=== PATIENT | female | born 1940 | race Caucasian/White ===

== ENCOUNTER 2018-03-17 00:36 | Inpatient (IN) ==
[2018-03-17] MEDS ORDERED: Ipratropium/Albuterol Neb 3 ML IH ONE (01:04)
[2018-03-17] MEDS ORDERED: methylPREDNISolone 125 MG/2 ML VIAL IVP ONE (01:04)
[2018-03-17 01:29] LABS: ABG Base Excess 3 mEq/L (-2 to 3); ABG HCO3 28 mEq/L (21-27); ABG Oxygen Saturation 95 % (95-98); ABG PCO2 39 mmHg (35-45); ABG PH 7.45 pH Units (7.32-7.45); ABG PO2 72 mmHg (85-104); ABG TCO2 29 mEq/L (20-26)
[2018-03-17 01:49] LABS: Basophils # 0.1 K/mcL (0.0-0.2); Basophils % 0.5 %; Eosinophils # 0.5 K/mcL (0.0-0.6); Eosinophils % 3.6 %; Hematocrit 42.2 % (35.3-44.9); Hemoglobin 13.6 g/dL (11.5-15.4); Immature Granulocytes % 0.4 % (0-4); Lymphocytes # 3.3 K/mcL (0.6-4.6); Lymphocytes % 23.5 %; Mean Corpuscular HGB Conc 32.2 g/dL (31.6-35.5); Mean Corpuscular Hemoglobin 28.1 pg (28.0-33.3); Mean Corpuscular Volume 87.2 fL (83.0-100.0); Mean Platelet Volume 9.8 fL (9.4-12.4); Monocytes % 7.2 %; Neutrophils # 9.1 K/mcL (1.6-8.9); Platelet Count 318 K/mcL (140-400); Red Blood Count 4.84 M/mcL (3.82-4.97); Red Cell Distribution Width 14.8 % (11.5-14.5); Segmented Neutrophils % 64.8 %
[2018-03-17 02:08] LABS: BUN/Creatinine Ratio 18 (6-26); Blood Urea Nitrogen 16 mg/dL (8-23); Calcium 9.5 mg/dL (8.6-10.3); Carbon Dioxide 29 mEq/L (23-29); Chloride 104 mEq/L (98-107); Glucose 163 mg/dL (70-105); Osmolality,Calculated 299 (280-300); Potassium 3.7 mEq/L (3.5-5.1); Sodium 142 mEq/L (136-145); Troponin I < 0.03 ng/mL (< 0.04); eGFR For Non-African Americans > 60 (> 60)
--- NOTE | 2018-03-17 02:21 | Emergency Department Note ---
Disposition Clinical Impression: Bronchitis, acute, with bronchospasm, Diffuse interstitial pulmonary fibrosis Disposition: Admitted As Inpatient Condition: Fair Referrals: Kareem Rodriguez DO [Primary Care Provider] - Time of Disposition: 02:26 SOB HPI - General Chief Complaint: ED Shortness of Breath/Dyspnea Stated Complaint: difficulty in breathing Time Seen by Provider: 03/17/18 00:55 Source: patient, EMS Mode of arrival: EMS Limitations: no limitations Nursing Notes Reviewed: Yes Vital Signs Reviewed: Yes - History of Present Illness Pt Subjective Complaint: shortness of breath, cough Onset (ago): day(s) (Has had some progressively worsening shortness of breath over the past couple of months but in the past and full of days has suddenly gotten worse.) Context: recent illness (Sinus congestion and a productive cough) Severity: severe Consistency/Duration: constant Improves with: oxygen, rest Worsens with: exertion Known history of: other (Chronic interstitial lung disease) Associated symptoms: Reports: cough, sputum production. Denies: chest pain, fever Treatment prior to arrival: oxygen Cough present: Yes Cough Frequency: Intermittent Sputum Amount: Small - Related Data Home oxygen amount: 2 liters Home Medications Medication Instructions Recorded Confirmed Albuterol Sulfate [Albuterol 2 puff IH Q4HR PRN 09/19/16 09/19/16 Inhaler] Atorvastatin [Lipitor] 10 mg PO HS 09/19/16 09/19/16 FLUoxetine HCl [Prozac] 20 mg PO HS 09/19/16 09/19/16 Fluticasone Propionate [Flovent 2 puff PO BID 09/19/16 09/19/16 Hfa] Ipratropium/Albuterol Neb [Duoneb] 3 ml IH Q6HR PRN 09/19/16 09/19/16 Lisinopril-HCTZ 10-12.5 [Prinzide 1 tab PO HS 09/19/16 09/19/16 10-12.5] [place]-3/Dha/Epa/Fish Oil [Fish Oil 1 each PO HS 09/19/16 09/19/16 1,000 mg Softgel] Previous Rx's Medication Instructions Recorded OxyCODONE/APAP 5/325 [Percocet 1 each PO Q4HR PRN #30 tab 09/27/16 5/325 MG] Allergies Allergy/AdvReac Type Severity Reaction Status Date / Time No Known Allergies Allergy Verified 03/17/18 00:48 All systems ED: reviewed and negative except as stated. Constitutional: Denies: fever, chills ENT ED: Reports: congestion. Denies: ear pain, throat pain Cardiovascular: Denies: chest pain, palpitations Respiratory: Reports: cough, dyspnea, wheezes Gastrointestinal: Denies: abdominal pain, nausea, vomiting, diarrhea Musculoskeletal: Denies: back pain, neck pain Integumentary: Denies: rash Past Medical History - Past Medical History Attestation: Yes The following information was validated with the patient. Source: patient, old records reviewed, obtained from family, nursing notes reviewed Medical history: Reports: hyperlipidemia, hypertension, other Surgical history: Reports: other Psychiatric history: Reports: anxiety, depression - Social History Smoking Status: Former smoker Smokeless Tobacco Status: No Alcohol use: Reports: none Drug use: Reports: none Physical Exam - General Limitations: no limitations General appearance: alert, in distress (Patient is tachypneic. Nontoxic. Smiling and interactive) - Head Head exam: atraumatic, normocephalic, normal inspection - Eye Eye exam: Present: normal appearance, PERRL, EOMI. Absent: scleral icterus, conjunctival injection - ENT ENT exam: normal exam, normal oropharynx, mucous membranes moist, TM's normal bilaterally, normal external ear exam - Neck Neck exam: Present: normal inspection, full ROM, trachea midline. Absent: meningismus - Chest Chest inspection: Present: normal inspection, symmetric chest wall rise. Absent: tenderness - Respiratory Respiratory exam: Present: respiratory distress (Tachypneic), wheezes (Course in bilateral). Absent: accessory muscle use - Cardiovascular Cardiovascular exam: Present: normal rhythm, tachycardia, normal heart sounds - Abdominal Exam Abdominal exam: Present: soft, Non-Tender, normal bowel sounds - Extremities Exam Extremities exam: Present: normal inspection, full ROM. Absent: pedal edema - Neurological Exam Neurological exam: Present: alert, oriented X3 - Psychiatric Psychiatric exam: Present: normal affect, normal mood - Skin Skin exam: Present: warm, dry, rash Course Course Narrative: Patient presents with complaint of shortness of breath. Progressively worsening firm a period of months but worse in the past and full of days after developing some upper respiratory infection symptoms. She has a cough still bit productive. She got diffuse wheezing bilaterally on auscultation. There are no clinical indications of DVT. It does not seem like pulmonary embolism. Seems like a reactive issue in the lungs as result of respiratory infection. I am going to start breathing treatments and give her steroids. We will get an x-ray and check labs. Disposition will be based on diagnostic results and reevaluation. - Reevaluation(s) Reevaluation #1: Patient does feel better after breathing treatments but still tachypneic and still tachycardic. O2 sats are 96% on 3 L right now. I feel she is to be admitted to the hospital for respiratory treatment. We will start antibiotics. I will talk to the hospitalist. Time: 02:24 - Consultations Consultation #1: Dr. Nieves, hospitalist - I discussed the case with the hospitalist. He accepted the patient for admission to the hospital. Time: 02:24 Vital Signs Temperature 97.6 F 03/17/18 00:37 Pulse Rate 123 03/17/18 00:37 Respiratory Rate 26 03/17/18 00:37 Blood Pressure 137/94 03/17/18 00:37 O2 Sat by Pulse Oximetry 93 03/17/18 00:37 Temperature 97.6 F 03/17/18 00:37 Pulse Rate 124 03/17/18 01:30 Respiratory Rate 30 03/17/18 01:30 Blood Pressure 115/80 03/17/18 01:30 O2 Sat by Pulse Oximetry 97 03/17/18 01:30 Oxygen Delivery Oxygen Delivery Nasal Cannula Shortness of Breath/Dyspnea - Medical Records Medical records reviewed: Yes I reviewed the patient's medical records. - Lab Data Lab results reviewed: Yes I reviewed the patient's lab results. Result diagrams: 03/17/18 01:30 03/17/18 01:30 Lab Results 03/17/18 03/17/18 03/17/18 Range/Units 01:26 01:30 01:30 WBC 14.1 H (4.3-11.1) K/mcL RBC 4.84 (3.82-4.97) M/mcL Hgb 13.6 (11.5-15.4) g/dL Hct 42.2 (35.3-44.9) % MCV 87.2 (83.0-100.0) fL MCH 28.1 (28.0-33.3) pg MCHC 32.2 (31.6-35.5) g/dL RDW 14.8 H (11.5-14.5) % Plt Count 318 (140-400) K/mcL MPV 9.8 (9.4-12.4) fL Immature Gran % 0.4 (0-4) % Seg Neutrophils % 64.8 % Lymphocytes % 23.5 % Monocytes % 7.2 % Eosinophils % 3.6 % Basophils % 0.5 % Neutrophils # 9.1 H (1.6-8.9) K/mcL Lymphocytes # 3.3 (0.6-4.6) K/mcL Monocytes # 1.0 (0.0-1.3) K/mcL Eosinophils # 0.5 (0.0-0.6) K/mcL Basophils # 0.1 (0.0-0.2) K/mcL D-Dimer 477 (0-500) ng/mLFEU Sample Site L Brach ABG pH 7.45 (7.32-7.45) pH Units ABG pCO2 39 (35-45) mmHg ABG pO2 72 L (85-104) mmHg ABG HCO3 28 H (21-27) mEq/L ABG Total CO2 29 H (20-26) mEq/L ABG O2 Saturation 95 (95-98) % ABG Base Excess 3 (-2 to 3) mEq/L Travis Test Negative O2 Delivery Device Cannula Inspired O2 4.0 (1-15=lpm ft33-266=%) Sodium (136-145) mEq/L Potassium (3.5-5.1) mEq/L Chloride (98-107) mEq/L Carbon Dioxide (23-29) mEq/L BUN (8-23) mg/dL Creatinine (0.60-1.20) mg/dL Est GFR ( Amer) (> 60) Est GFR (Non-Af Amer) (> 60) BUN/Creatinine Ratio (6-26) Glucose (70-105) mg/dL Calculated Osmolality (280-300) Lactic Acid (0.5-2.2) mmol/L Calcium (8.6-10.3) mg/dL Troponin I (< 0.04) ng/mL B-Natriuretic Peptide (Less than 100) pg/mL 03/17/18 03/17/18 03/17/18 Range/Units 01:30 01:30 01:30 WBC (4.3-11.1) K/mcL RBC (3.82-4.97) M/mcL Hgb (11.5-15.4) g/dL Hct (35.3-44.9) % MCV (83.0-100.0) fL MCH (28.0-33.3) pg MCHC (31.6-35.5) g/dL RDW (11.5-14.5) % Plt Count (140-400) K/mcL MPV (9.4-12.4) fL Immature Gran % (0-4) % Seg Neutrophils % % Lymphocytes % % Monocytes % % Eosinophils % % Basophils % % Neutrophils # (1.6-8.9) K/mcL Lymphocytes # (0.6-4.6) K/mcL Monocytes # (0.0-1.3) K/mcL Eosinophils # (0.0-0.6) K/mcL Basophils # (0.0-0.2) K/mcL D-Dimer (0-500) ng/mLFEU Sample Site ABG pH (7.32-7.45) pH Units ABG pCO2 (35-45) mmHg ABG pO2 (85-104) mmHg ABG HCO3 (21-27) mEq/L ABG Total CO2 (20-26) mEq/L ABG O2 Saturation (95-98) % ABG Base Excess (-2 to 3) mEq/L Travis Test O2 Delivery Device Inspired O2 (1-15=lpm oh80-447=%) Sodium 142 (136-145) mEq/L Potassium 3.7 (3.5-5.1) mEq/L Chloride 104 (98-107) mEq/L Carbon Dioxide 29 (23-29) mEq/L BUN 16 (8-23) mg/dL Creatinine 0.89 (0.60-1.20) mg/dL Est GFR ( Amer) > 60 (> 60) Est GFR (Non-Af Amer) > 60 (> 60) BUN/Creatinine Ratio 18 (6-26) Glucose 163 H (70-105) mg/dL Calculated Osmolality 299 (280-300) Lactic Acid 1.7 (0.5-2.2) mmol/L Calcium 9.5 (8.6-10.3) mg/dL Troponin I < 0.03 (< 0.04) ng/mL B-Natriuretic Peptide 25 (Less than 100) pg/mL - Radiology Data Radiology results reviewed: Yes I reviewed the patient's radiology results. - EKG Data EKG attestation: Yes I reviewed and interpreted this EKG. EKG results narrative: Twelve-lead EKG performed at 1: 14 AM. Ordered, reviewed and interpreted by ED physician. Sinus tachycardia at a rate of 127. Normal axis. Good hour progression across precordium. No acute ischemic changes. Intervals within normal limits.
[2018-03-17] MEDS ORDERED: Levofloxacin 750 MG/150 ML 750 MG/150 ML BAG IVPB ONE ×2 (02:28→03:30)
[2018-03-17] MEDS ORDERED: Naloxone 0.4 MG/ML INJ IVP PRN (03:30)
[2018-03-17] MEDS: Ipratropium/Albuterol Neb 3 ML IH SCH ×3 (03:38→11:39)
[2018-03-17] MEDS: 0.9 % Sodium Chloride 1,000 ML IVC SCH ×2 (04:33→15:26)
[2018-03-17] MEDS: MethylPREDNISolone 40 MG/ML VIAL IVP SCH ×2 (07:53→15:30)
[2018-03-17] MEDS: MOMETASONE FUROATE 100 mcg Inhaler IH SCH ×2 (10:47→20:37)
--- NOTE | 2018-03-17 15:33 | Internal Med History&Physical ---
Date of Encounter: 03/17/18 Time of Encounter: 14:45 Assessment and Plan (1) Interstitial lung disease Current visit: No Status: Chronic Suspect superimposed exacerbation of COPD with asthmatic bronchitis. Symbicort will be ordered. Albuterol nebs as needed. She has been started empirically on IV antibiotics with Solu-Medrol through emergency room. (2) Hypertension Current visit: Yes Status: Chronic Will start low-dose Toprol to lessen tachycardia. Hold lisinopril/HCTZ for now. Qualifiers: Hypertension type: essential hypertension Qualified Code(s): I10 - Essential (primary) hypertension (3) Leukocytosis Current visit: Yes Status: Acute Recheck labs in a.m. Qualifiers: Leukocytosis type: unspecified Qualified Code(s): D72.829 - Elevated white blood cell count, unspecified (4) Weight loss Current visit: Yes Status: Acute Weight has decreased approximately 50 pounds since September 2016. Check TSH and order CT of chest abdomen and pelvis (5) Weakness Current visit: Yes Status: Acute She is now unable to take more than 2-3 steps at home. PT and OT evaluations will be done. Internal Medicine - H&P: HPI Chief complaint: Dyspnea Admitted From: Emergency Dept Plans for Post Hospital Care: Home History of present illness: Ms. Garcia is a 77 year old female who came to emergency room complaining of increased dyspnea with cough over the last month. She seemed to be progressively weaker so came to emergency room. She was evaluated and was admitted to [facility] floor for ongoing care needs. She was diagnosed with idiopathic pulmonary fibrosis approximately 2016. Her respiratory history is significant for having smoked from age [age] never exceeding 1 pack per day. She denies a diagnosis of COPD. She uses oxygen 11/09. Past Med Surg Social Fam HX - Past Medical History Medical history: hyperlipidemia, hypertension, other Additional medical history: decreased right lung function Psychiatric history: anxiety, depression - Past Surgical History Surgical History: other Additional surgical history: lung biospy - Social History Smoking Status: Former smoker Smokeless Tobacco Status: No Alcohol use: none Drug use: none - Family History Mother Name: Leatha Heredia Hx Family Cardiac Disorders: No Hx Family Respiratory Disorders: No Hx Family Cancer: Yes (Colon) Hx Family GI Disorders: No Hx Family Genitourinary Disorders: No Hx Family Endocrine Disorder: No Hx Family Musculoskeletal Disorders: No Hx Family Neuromuscular Disorders: No Hx Family Neurologic Disorders: No Hx Family HEENT Disorders: No Hx Family Autoimmune Disorders: No Hx Family Reproductive Disorders: No Hx Family Psychosocial Disorders: No Hx Family Medical Disorders: No Internal Medicine - H&P: Meds Albuterol Sulfate [Albuterol Inhaler] 2 puff IH Q4HR PRN 09/19/16 [History] Atorvastatin [Lipitor] 10 mg PO HS 09/19/16 [History] Ipratropium/Albuterol Neb [Duoneb] 3 ml IH Q6HR PRN 09/19/16 [History] Lisinopril-HCTZ 10-12.5 [Prinzide 10-12.5] 1 tab PO HS 09/19/16 [History] Allergy/AdvReac Type Severity Reaction Status Date / Time No Known Allergies Allergy Verified 03/17/18 00:48 All Systems PM: A 10-system review of systems was performed and is negative for pertinent findings except as documented above in the HPI. Review of systems: Gen.: Her weight has decreased from 95.4 kg September 2016 to 72.1 kg on admission now. This was unintentional. Cardiovascular: She has history of hypertension but denies MT heart failure angina DVT or pulmonary embolus. Respiratory: As per history of present illness GI: She denies disorders of her liver gallbladder or exocrine pancreas : She has had occasional UTIs. She denies other kidney or bladder disorders. Neurologic: She denies large distribution strokes or seizures. Endocrine: She has hyperlipidemia but denies diabetes or thyroid disease Hematology/oncology: She denies blood disorders cancers or anemia Psychiatric: She has anxiety and depression but denies other mental health issues. [place] skeletal: She has DJD but denies gout or other bone joint or muscle disorders. - Constitutional Vitals: Temp Pulse Resp BP Pulse Ox 98.2 F 133 22 128/73 93 03/17/18 13:45 03/17/18 13:45 03/17/18 13:45 03/17/18 11:04 03/17/18 11:39 Exam: Gen.: She is a well-developed well-nourished female lying in bed who appears dyspneic and slightly anxious at rest HEENT: Head is atraumatic and normal cephalic. Eyes: EOMI. There is no scleral icterus. Mouth: Mucosa is moist. Neck: Supple and nontender. There is no thyromegaly or adenopathy noted. Heart: Regular without murmurs gallops or ectopics. Rate is approximately 136/m Lungs: She has fine inspiratory crackles that do not clear with coughing. She has mild expiratory wheezing diffusely. Abdomen: Soft and nontender. No masses or guarding are noted. Extremities: There is no cyanosis edema or clubbing noted. Dorsalis pedis and posterior tibial pulses are trace to 1+ palpable bilaterally. Neurologic: Mental status: She is talkative and a good historian. Cranial nerves: Smile is symmetric. Forehead wrinkles bilaterally. Tongue protrudes midline. EOMI. Motor: There is no pronator drift. Cerebellar: Finger to nose is intact bilaterally. Skin: Warm and dry Internal Med - H&P Results - Labs CBC & Chem 7: 03/17/18 01:30 03/17/18 01:30 Labs: Short CBC 03/17/18 Range/Units 01:30 WBC 14.1 H (4.3-11.1) K/mcL Hgb 13.6 (11.5-15.4) g/dL Hct 42.2 (35.3-44.9) % Plt Count 318 (140-400) K/mcL Neutrophils # 9.1 H (1.6-8.9) K/mcL BMP 03/17/18 01:30 Sodium 142 Potassium 3.7 Chloride 104 Carbon Dioxide 29 BUN 16 Creatinine 0.89 Glucose 163 H Calcium 9.5 Cardiac Enzymes 03/17/18 03/17/18 03/17/18 Range/Units 01:30 07:30 13:30 Troponin I < 0.03 < 0.03 < 0.03 (< 0.04) ng/mL - ABG Interpretation ABG results: 03/17/18 01:26 ABG pH 7.45 ABG pCO2 39 ABG pO2 72 L ABG HCO3 28 H ABG Total CO2 29 H ABG O2 Saturation 95 ABG Base Excess 3 - Impressions ITS Impressions Chest X-Ray 03/17/18 01:03 IMPRESSION: Stable appearance of the chest with findings consistent with interstitial fibrosis. D/ / Yannick Baig MD / Yannick Baig MD Interpreting Provider: Yannick Baig MD
[2018-03-17] MEDS ORDERED: Mag Hydrox/Al Hydrox/Simeth 30 ML UDC PO PRN (15:42)
[2018-03-17] MEDS: Metoprolol XL (24 HR) Succ 25 MG TAB.ER.24H PO SCH (16:29)
[2018-03-17] MEDS: ALPRAZolam 0.5 MG TABLET PO PRN (16:29)
[2018-03-17] MEDS: Budesonide/Formoterol 160/4.5 1 PUFF INH IH SCH ×2 (17:20→21:30)
[2018-03-17] MEDS: FLUoxetine 20 MG CAPSULE PO SCH (19:59)
[2018-03-17] MEDS: Lactobacillus 1 EACH CAP.SPRINK PO SCH (19:59)
[2018-03-18] MEDS: MethylPREDNISolone 40 MG/ML VIAL IVP SCH (00:43)
[2018-03-18] MEDS: Levofloxacin 500 MG/100 ML 500 MG/100 ML BAG IVPB SCH (04:14)
[2018-03-18] MEDS: *HR* Enoxaparin 40 MG/0.4 ML SYRINGE SQ SCH (05:40)
[2018-03-18 07:57] LABS: Magnesium 2.3 mg/dL (1.6-2.6)
[2018-03-18] MEDS ORDERED: methylPREDNISolone 125 MG/2 ML VIAL IVP SCH (08:00)
[2018-03-18 08:12] LABS: Thyroid Stimulating Hormone 0.266 mcIU/mL (0.340-5.600)
[2018-03-18] MEDS: Lactobacillus 1 EACH CAP.SPRINK PO SCH ×2 (09:17→20:15)
[2018-03-18] MEDS: Metoprolol XL (24 HR) Succ 25 MG TAB.ER.24H PO SCH (09:17)
[2018-03-18] MEDS: MOMETASONE FUROATE 100 mcg Inhaler IH SCH (10:05)
[2018-03-18] MEDS: Budesonide/Formoterol 160/4.5 1 PUFF INH IH SCH ×2 (10:08→22:40)
[2018-03-18] MEDS ORDERED: Ondansetron ODT 4 MG TAB.RAPDIS SL PRN (10:35)
--- NOTE | 2018-03-18 10:46 | Internal Med Progress Note ---
Date of Encounter: 03/18/18 Time of Encounter: 10:25 - Assessment and plan (1) Interstitial lung disease Current Visit: No Status: Chronic Assessment and plan: March 18. Continue present management. (2) Hypertension Current Visit: Yes Status: Chronic Assessment and plan: March 18. Remain off lisinopril/HCTZ and continue low-dose Toprol. Qualifiers: Hypertension type: essential hypertension Qualified Code(s): I10 - Essential (primary) hypertension (3) Leukocytosis Current Visit: Yes Status: Acute Assessment and plan: March 18. Recheck labs in a.m. Qualifiers: Leukocytosis type: unspecified Qualified Code(s): D72.829 - Elevated white blood cell count, unspecified (4) Weight loss Current Visit: Yes Status: Acute Assessment and plan: . TSH returned suppressed at 0.266. Check T3 and T4 in a.m. with repeat TSH. (5) Weakness Current Visit: Yes Status: Acute Assessment and plan: March 18. PT and OT evaluations have been ordered. - Subjective Interval history: March 18. She has had vomiting this morning. She does not feel her dyspnea has significantly changed. - Constitutional Vitals: Temp Pulse Resp BP Pulse Ox 98.3 F 68 16 100/59 96 03/18/18 09:05 03/18/18 09:05 03/18/18 09:05 03/18/18 09:05 03/18/18 09:05 Exam: She is resting comfortably in bed. Her affect is cheerful. Heart is regular with rate approximately 80/m. Lungs show no wheezing. Inspiratory crackles are unchanged from yesterday. I reviewed her medications, lab results, and CT report. Internal Medicine: Result - Labs CBC & Chem 7: 03/17/18 01:30 03/17/18 01:30 Labs: Cardiac Enzymes 03/17/18 Range/Units 13:30 Troponin I < 0.03 (< 0.04) ng/mL - ABG Interpretation ABG results: ABG ABG pH 7.45 pH Units (7.32-7.45) 03/17/18 01:26 ABG pCO2 39 mmHg (35-45) 03/17/18 01:26 ABG pO2 72 mmHg (85-104) L 03/17/18 01:26 ABG O2 Saturation 95 % (95-98) 03/17/18 01:26 PT/INR, D-dimer D-Dimer 477 ng/mLFEU (0-500) 03/17/18 01:30 - Impressions Impressions Abdomen/Pelvis CT 03/17/18 15:46 IMPRESSION: Fibrotic changes throughout the lungs, similar in appearance to previous exam. 3.2 x 2.8 cm left ovarian cystic lesion. Recommend further evaluation with ultrasound. D/ / Terri Juares MD / Terri Juares MD Interpreting Provider: Terri Juares MD Chest CT 03/17/18 15:46 IMPRESSION: Fibrotic changes throughout the lungs, similar in appearance to previous exam. 3.2 x 2.8 cm left ovarian cystic lesion. Recommend further evaluation with ultrasound. D/ / Terri Juares MD / Terri Juares MD Interpreting Provider: Terri Juares MD Consult Discharge Plan - Plan Referrals: Kareem Rodriguez DO [Primary Care Provider] - 1 week
[2018-03-18] MEDS: Albuterol 2.5 MG/3 ML NEBULIZER IH PRN (15:55)
[2018-03-18] MEDS: ALPRAZolam 0.5 MG TABLET PO PRN (16:04)
[2018-03-18] MEDS: FLUoxetine 20 MG CAPSULE PO SCH (20:15)
[2018-03-19] MEDS: Levofloxacin 500 MG/100 ML 500 MG/100 ML BAG IVPB SCH (04:09)
[2018-03-19] MEDS: *HR* Enoxaparin 40 MG/0.4 ML SYRINGE SQ SCH (05:45)
[2018-03-19 06:31] LABS: Basophils % 0.1 %; Eosinophils % 0.1 %; Hematocrit 37.3 % (35.3-44.9); Hemoglobin 11.8 g/dL (11.5-15.4); Immature Granulocytes % 0.5 % (0-4); Lymphocytes # 1.8 K/mcL (0.6-4.6); Lymphocytes % 12.3 %; Mean Corpuscular HGB Conc 31.6 g/dL (31.6-35.5); Mean Corpuscular Hemoglobin 28.3 pg (28.0-33.3); Mean Corpuscular Volume 89.4 fL (83.0-100.0); Mean Platelet Volume 9.7 fL (9.4-12.4); Monocytes % 6.5 %; Neutrophils # 11.9 K/mcL (1.6-8.9); Platelet Count 299 K/mcL (140-400); Red Blood Count 4.17 M/mcL (3.82-4.97); Red Cell Distribution Width 15.5 % (11.5-14.5); Segmented Neutrophils % 80.5 %
[2018-03-19 06:59] LABS: Alanine Aminotransferase 8 Units/L (7-52); Albumin 3.2 g/dL (3.5-5.7); Albumin/Globulin Ratio 1.1 (1.1-2.2); Alkaline Phosphatase 62 Units/L (34-104); Aspartate Amino Transferase 11 Units/L (13-39); BUN/Creatinine Ratio 36 (6-26); Bilirubin,Total 0.2 mg/dL (0.3-1.0); Blood Urea Nitrogen 25 mg/dL (8-23); Calcium 9.1 mg/dL (8.6-10.3); Carbon Dioxide 30 mEq/L (23-29); Chloride 108 mEq/L (98-107); Globulin 2.9 g/dL (2.4-3.5); Glucose 95 mg/dL (70-105); Osmolality,Calculated 298 (280-300); Potassium 3.9 mEq/L (3.5-5.1); Sodium 142 mEq/L (136-145); Total Protein 6.1 g/dL (6.4-8.9); eGFR For Non-African Americans > 60 (> 60)
[2018-03-19 07:07] LABS: Thyroid Stimulating Hormone 0.989 mcIU/mL (0.340-5.600)
[2018-03-19] MEDS: Lactobacillus 1 EACH CAP.SPRINK PO SCH ×2 (08:23→20:08)
[2018-03-19] MEDS: Metoprolol XL (24 HR) Succ 25 MG TAB.ER.24H PO SCH (08:23)
[2018-03-19] MEDS: Budesonide/Formoterol 160/4.5 1 PUFF INH IH SCH ×2 (09:29→21:03)
--- NOTE | 2018-03-19 12:05 | Electrocardiograph Report ---
[place] [id number] Test Date: 2018-03-17 Pat Name: Ewelina Garcia Department: EDP-16 Room: [facility] Gender: F Internet Sales Associate: : 1940 Requested By: Mejia Tellez Order Number: [id number] Reading MD: Neal Padilla Measurements Intervals [place] Rate: 127 P: 0 UT: 142 QRS: 85 QRSD: 97 T: 26 QT: 314 QTc: 457 Interpretive Statements Sinus tachycardia Probable left atrial enlargement Low voltage, precordial leads Nonspecific ST T changes Electronically Signed On 03-19-2018 12:04:28 EST by Neal Padilla
--- NOTE | 2018-03-19 12:48 | Discharge Summary ---
Orders not resulted at time of discharge: Pending orders 03/17/18 01:30 Culture,Blood [BC] Stat Date of Encounter: 03/19/18 Time of Encounter: 12:38 - Discharge Diagnosis (1) Interstitial lung disease Priority: Primary Status: Chronic (2) Hypertension Priority: Secondary Status: Chronic Qualifiers: Hypertension type: essential hypertension Qualified Code(s): I10 - Essential (primary) hypertension (3) Leukocytosis Priority: Secondary Status: Acute Qualifiers: Leukocytosis type: unspecified Qualified Code(s): D72.829 - Elevated white blood cell count, unspecified (4) Weight loss Priority: Secondary Status: Acute (5) Weakness Priority: Secondary Status: Chronic Hospital course: Ms. Garcia is a 77 year old female who came to emergency room complaining of increased dyspnea with cough over the last month. She seemed to be progressively weaker so came to emergency room. She was evaluated and was admitted to [facility] floor for ongoing care needs. Initial orders were written by the emergency room physician. I saw her on March 17 and performed a history and physical. Chest CT was done to further evaluate dyspnea. There were fibrotic changes seen throughout the lung similar in appearance to previous exams. There was a 3 x 2 x 2.8 cm left ovarian cystic lesion. Recommendation for further evaluation ultrasound was made. Her PCP Dr. Rodriguez can order this. She was started empirically on Levaquin. WBC remained slightly elevated at 14.8 K on day of discharge with 80.5% segs present. She will continue with antibiotics and probiotic for 3 additional days at discharge. The etiology of her weight loss was not determined. TSH on March 10 returned slightly suppressed at 0.266 but repeat exam the following day was normal at 0.989. She was given Xanax on a prn basis since she appeared anxious about her dyspnea. She will be given 12 pills on prescription at discharge. Her PCP can order additional medication as needed. PT and OT evaluations were done to further evaluate and treat her weakness. I encouraged her to remain as active as possible in the home. She will be discharged and follow with her PCP Dr. Rodriguez within 1 week. - Time Spent with Patient Total time spent providing and/or coordinating discharge services: - Discharge Medications Prescriptions: Cefuroxime PO [Ceftin] 500 mg PO Q12HR #6 tablet ALPRAZolam [Xanax 0.5 MG Tablet] 0.5 mg PO Q6H PRN 3 Days #12 tablet PRN Reason: Anxiety Azithromycin [Zithromax] 250 mg PO DAILY #3 tablet Lactobacillus [Culturelle] 1 each PO BID #6 cap.sprink predniSONE [PredniSONE] 10 mg PO BIDWM #6 tablet Home Medications: Albuterol Sulfate [Albuterol Inhaler] 2 puff IH Q4HR PRN 09/19/16 [History] Atorvastatin [Lipitor] 10 mg PO HS 09/19/16 [History] Ipratropium/Albuterol Neb [Duoneb] 3 ml IH Q6HR PRN 09/19/16 [History] ALPRAZolam [Xanax 0.5 MG Tablet] 0.5 mg PO Q6H PRN 3 Days #12 tablet 03/19/18 [Rx] Azithromycin [Zithromax] 250 mg PO DAILY #3 tablet 03/19/18 [Rx] Cefuroxime PO [Ceftin] 500 mg PO Q12HR #6 tablet 03/19/18 [Rx] Lactobacillus [Culturelle] 1 each PO BID #6 cap.sprink 03/19/18 [Rx] predniSONE [PredniSONE] 10 mg PO BIDWM #6 tablet 03/19/18 [Rx] Allergies/Adverse Reactions: Allergy/AdvReac Type Severity Reaction Status Date / Time No Known Allergies Allergy Verified 03/17/18 00:48 Date of admission: 03/17/18 16:24 Primary care physician: Kareem Rodriguez DO Consults: 03/17/18 04:20 Consult to Civil Cad Designer [CONS] Routine Reason for SW Consult: Home therapy (oxygen currently) 03/17/18 15:49 Consult to Occupational Therapy [CONS] Routine Comment: Evaluate, develop and implement POC Reason for Consult: Weakness Does patient have active BEDREST order?: No Is patient medically & hemodynamically stable?: Yes Patient assessed for mobility or mobilized this visit?: Yes Consult to Physical Therapy [CONS] Routine Comment: Evaluate, develop and implement POC Reason for Consult: Weakness Does patient have active BEDREST order?: No Is patient medically & hemodynamically stable?: Yes Patient assessed for mobility or mobilized this visit?: Yes - Constitutional Vitals: Temp Pulse Resp BP Pulse Ox 97.6 F 66 16 103/58 99 03/19/18 10:56 03/19/18 10:56 03/19/18 10:56 03/19/18 10:56 03/19/18 10:56 - Patient Status Disposition: Home, Self-Care Condition: Fair - Discharge Instructions Follow Up With: Kareem Rodriguez DO [Primary Care Provider] - 1 week - Diet and Activity Activity: resume usual activities as tolerated, wear oxygen at all times Diet: advance to your usual diet
[2018-03-19] MEDS: FLUoxetine 20 MG CAPSULE PO SCH (20:08)
[2018-03-19] MEDS: Albuterol 2.5 MG/3 ML NEBULIZER IH PRN (21:02)
[2018-03-20] MEDS: Levofloxacin 500 MG/100 ML 500 MG/100 ML BAG IVPB SCH (04:15)
[2018-03-20] MEDS: *HR* Enoxaparin 40 MG/0.4 ML SYRINGE SQ SCH (06:06)
[2018-03-20] MEDS: Metoprolol XL (24 HR) Succ 25 MG TAB.ER.24H PO SCH (08:10)
[2018-03-20] MEDS: Lactobacillus 1 EACH CAP.SPRINK PO SCH ×2 (08:10→20:47)
[2018-03-20] MEDS: Budesonide/Formoterol 160/4.5 1 PUFF INH IH SCH ×2 (09:28→21:26)
--- NOTE | 2018-03-20 18:13 | Internal Med Progress Note ---
Date of Encounter: 03/20/18 Time of Encounter: 18:05 - Assessment and plan (1) Interstitial lung disease Current Visit: No Status: Chronic Assessment and plan: March 18. Continue present management. (2) Hypertension Current Visit: Yes Status: Chronic Assessment and plan: March 18. Remain off lisinopril/HCTZ and continue low-dose Toprol. Qualifiers: Hypertension type: essential hypertension Qualified Code(s): I10 - Essential (primary) hypertension (3) Leukocytosis Current Visit: Yes Status: Acute Assessment and plan: March 18. Recheck labs in a.m. March 20. Recheck labs in a.m. Qualifiers: Leukocytosis type: unspecified Qualified Code(s): D72.829 - Elevated white blood cell count, unspecified (4) Weight loss Current Visit: Yes Status: Acute Assessment and plan: March 18. TSH returned suppressed at 0.266. Check T3 and T4 in a.m. with repeat TSH. March 20. Repeat TSH normal at 0.989. T3 slightly low and T4 unremarkable. (5) Weakness Current Visit: Yes Status: Chronic Assessment and plan: March 18. PT and OT evaluations have been ordered. - Subjective Interval history: March 18. She has had vomiting this morning. She does not feel her dyspnea has significantly changed. March 20. Her discharge order was canceled yesterday after an appeal was filed to insurance for consideration for allowing swing bed stay at [facility]. No determination decision has been received back from insurance yet. She has no new complaints. - Constitutional Vitals: Temp Pulse Resp BP Pulse Ox 97.4 F L 81 16 124/68 99 03/20/18 10:00 03/20/18 10:00 03/20/18 10:00 03/20/18 10:00 03/20/18 10:00 Exam: She is resting comfortably in bed and appears in no acute distress. Her affect is bright and cheerful. I reviewed her medications and lab results. Internal Medicine: Result - Labs CBC & Chem 7: 03/19/18 06:08 03/19/18 06:08 - ABG Interpretation ABG results: ABG ABG pH 7.45 pH Units (7.32-7.45) 03/17/18 01:26 ABG pCO2 39 mmHg (35-45) 03/17/18 01:26 ABG pO2 72 mmHg (85-104) L 03/17/18 01:26 ABG O2 Saturation 95 % (95-98) 03/17/18 01:26 PT/INR, D-dimer D-Dimer 477 ng/mLFEU (0-500) 03/17/18 01:30 Consult Discharge Plan - Plan Referrals: Kareem Rodriguez DO [Primary Care Provider] - 1 week Prescriptions: Cefuroxime PO [Ceftin] 500 mg PO Q12HR #6 tablet ALPRAZolam [Xanax 0.5 MG Tablet] 0.5 mg PO Q6H PRN 3 Days #12 tablet PRN Reason: Anxiety Azithromycin [Zithromax] 250 mg PO DAILY #3 tablet Lactobacillus [Culturelle] 1 each PO BID #6 cap.sprink predniSONE [PredniSONE] 10 mg PO BIDWM #6 tablet
[2018-03-20] MEDS: FLUoxetine 20 MG CAPSULE PO SCH (20:47)
[2018-03-21] MEDS: *HR* Enoxaparin 40 MG/0.4 ML SYRINGE SQ SCH (06:04)
[2018-03-21 06:43] LABS: Basophils % 0.1 %; Eosinophils # 0.6 K/mcL (0.0-0.6); Hematocrit 39.2 % (35.3-44.9); Hemoglobin 12.3 g/dL (11.5-15.4); Immature Granulocytes % 0.4 % (0-4); Lymphocytes # 1.8 K/mcL (0.6-4.6); Lymphocytes % 21.4 %; Mean Corpuscular HGB Conc 31.4 g/dL (31.6-35.5); Mean Corpuscular Volume 89.3 fL (83.0-100.0); Mean Platelet Volume 10.3 fL (9.4-12.4); Monocytes # 0.8 K/mcL (0.0-1.3); Neutrophils # 5.3 K/mcL (1.6-8.9); Platelet Count 301 K/mcL (140-400); Red Blood Count 4.39 M/mcL (3.82-4.97); Red Cell Distribution Width 15.6 % (11.5-14.5); Segmented Neutrophils % 62.1 %
[2018-03-21 07:08] LABS: BUN/Creatinine Ratio 18 (6-26); Blood Urea Nitrogen 11 mg/dL (8-23); Calcium 9.1 mg/dL (8.6-10.3); Carbon Dioxide 33 mEq/L (23-29); Chloride 104 mEq/L (98-107); Glucose 95 mg/dL (70-105); Osmolality,Calculated 291 (280-300); Potassium 3.9 mEq/L (3.5-5.1); Sodium 141 mEq/L (136-145); eGFR For Non-African Americans > 60 (> 60)
[2018-03-21] MEDS: Lactobacillus 1 EACH CAP.SPRINK PO SCH (08:17)
[2018-03-21] MEDS: Metoprolol XL (24 HR) Succ 25 MG TAB.ER.24H PO SCH (08:17)
[2018-03-21] MEDS ORDERED: levoFLOXacin 500 MG TABLET PO SCH (09:00)
[2018-03-21] MEDS: Budesonide/Formoterol 160/4.5 1 PUFF INH IH SCH (10:21)
[2018-03-21 10:47] VITALS: BP 90/67
--- NOTE | 2018-03-21 17:23 | Discharge Summary ---
Orders not resulted at time of discharge: Pending orders 03/17/18 01:30 Culture,Blood [] Stat Date of Encounter: 03/21/18 Time of Encounter: 17:10 - Discharge Diagnosis (1) Interstitial lung disease Priority: Primary Status: Chronic (2) Hypertension Priority: Secondary Status: Chronic Qualifiers: Hypertension type: essential hypertension Qualified Code(s): I10 - Essential (primary) hypertension (3) Leukocytosis Priority: Secondary Status: Acute Qualifiers: Leukocytosis type: unspecified Qualified Code(s): D72.829 - Elevated white blood cell count, unspecified (4) Weight loss Priority: Secondary Status: Acute (5) Weakness Priority: Secondary Status: Chronic Hospital course: Ms. Garcia is a 77 year old female who came to emergency room complaining of increased dyspnea with cough over the last month. She seemed to be progressively weaker so came to emergency room. She was evaluated and was admitted to [facility] floor for ongoing care needs. Initial orders were written by the emergency room physician. I saw her on March 17 and performed a history and physical. Chest CT was done to further evaluate dyspnea. There were fibrotic changes seen throughout the lung similar in appearance to previous exams. There was a 3 x 2 x 2.8 cm left ovarian cystic lesion. Recommendation for further evaluation ultrasound was made. Her PCP Dr. Rodriguez can order this. She was started empirically on Levaquin. WBC remained slightly elevated at 14.8 K on day of discharge with 80.5% segs present. She will continue with antibiotics and probiotic for 3 additional days at discharge. The etiology of her weight loss was not determined. TSH on March 10 returned slightly suppressed at 0.266 but repeat exam the following day was normal at 0.989. She was given Xanax on a prn basis since she appeared anxious about her dyspnea. She will be given 12 pills on prescription at discharge. Her PCP can order additional medication as needed. PT and OT evaluations were done to further evaluate and treat her weakness. I encouraged her to remain as active as possible in the home. She will be discharged and follow with her PCP Dr. Rodriguez within 1 week. ADDENDUM: Following dictation of the discharge summary and writing of discharge order, and appeal was made to insurance for reconsideration of swing bed. Approval was received on March 21 for her to be discharged to swing bed and continue therapy. WBC normalized to 8.5 and there was resolution of left shift on March 21. Antibiotics will not be continued in swing bed. - Time Spent with Patient Total time spent providing and/or coordinating discharge services: - Discharge Medications Prescriptions: ALPRAZolam [Xanax 0.5 MG Tablet] 0.5 mg PO Q6H PRN 3 Days #12 tablet PRN Reason: Anxiety Home Medications: Albuterol Sulfate [Albuterol Inhaler] 2 puff IH Q4HR PRN 09/19/16 [History] Atorvastatin [Lipitor] 10 mg PO HS 09/19/16 [History] Ipratropium/Albuterol Neb [Duoneb] 3 ml IH Q6HR PRN 09/19/16 [History] ALPRAZolam [Xanax 0.5 MG Tablet] 0.5 mg PO Q6H PRN 3 Days #12 tablet 03/19/18 [Rx] Allergies/Adverse Reactions: Allergy/AdvReac Type Severity Reaction Status Date / Time No Known Allergies Allergy Verified 03/17/18 00:48 Date of admission: 03/17/18 16:24 Primary care physician: Kareem Rodriguez DO Consults: 03/17/18 04:20 Consult to Wharf Worker [CONS] Routine Reason for SW Consult: Home therapy (oxygen currently) 03/17/18 15:49 Consult to Occupational Therapy [CONS] Routine Comment: Evaluate, develop and implement POC Reason for Consult: Weakness Does patient have active BEDREST order?: No Is patient medically & hemodynamically stable?: Yes Patient assessed for mobility or mobilized this visit?: Yes Consult to Physical Therapy [CONS] Routine Comment: Evaluate, develop and implement POC Reason for Consult: Weakness Does patient have active BEDREST order?: No Is patient medically & hemodynamically stable?: Yes Patient assessed for mobility or mobilized this visit?: Yes - Constitutional Vitals: Temp Pulse Resp BP Pulse Ox 97.6 F 82 17 90/67 97 03/21/18 10:44 03/21/18 10:44 03/21/18 10:44 03/21/18 10:44 03/21/18 10:44 - Patient Status Disposition: Transfer Hospital Swing Bed Condition: Fair - Discharge Instructions - Diet and Activity Activity: as per physical therapy Diet: regular diet
== END 2018-03-21 17:45 | disposition other institution (70) | DRG 198 ==
LOC: INPPIK 00:36 → EMEROOPIK 00:36 → INPPIK 03:30
PROVIDERS: ADMIT Internal Medicine; ATTEND Internal Medicine

== ENCOUNTER 2018-03-21 17:29 | Inpatient (IN) ==
[2018-03-21] MEDS ORDERED: Ipratropium/Albuterol Neb 3 ML IH PRN (17:42)
[2018-03-21] MEDS ORDERED: ALPRAZolam 0.5 MG TABLET PO PRN (17:42)
[2018-03-21] MEDS: Cefuroxime PO 250 MG TABLET PO SCH (18:33)
[2018-03-21] MEDS: Lactobacillus 1 EACH CAP.SPRINK PO SCH (20:35)
[2018-03-22] MEDS: Cefuroxime PO 250 MG TABLET PO SCH (06:41)
[2018-03-22] MEDS: Lactobacillus 1 EACH CAP.SPRINK PO SCH (07:52)
[2018-03-22] MEDS ORDERED: predniSONE 10 MG TABLET PO SCH (08:00)
[2018-03-22] MEDS ORDERED: Azithromycin 250 MG TABLET PO SCH (09:00)
--- NOTE | 2018-03-22 09:30 | Internal Med Progress Note ---
Date of Encounter: 03/22/18 Time of Encounter: 09:20 - Assessment and plan (1) Interstitial lung disease Current Visit: No Status: Chronic Assessment and plan: March 22. Continue supplemental oxygen. (2) Hypertension Current Visit: No Status: Chronic Assessment and plan: March 22. Blood pressure borderline low. She is off all antihypertensive medication at this time. Qualifiers: Hypertension type: essential hypertension Qualified Code(s): I10 - Essential (primary) hypertension (3) Weight loss Current Visit: No Status: Chronic Assessment and plan: March 22. Etiology not identified. Continue to monitor. (4) Weakness Current Visit: No Status: Chronic Assessment and plan: March 22. Continue PT and OT intervention. (5) Hyperlipidemia Current Visit: Yes Status: Chronic Assessment and plan: March 22. Lipid profile 01/08/2018 showed cholesterol 110, triglycerides 82, LDL 56, HDL 38, and total/HDL ratio of 2.9. Lipitor will be discontinued. Qualifiers: Hyperlipidemia type: unspecified Qualified Code(s): E78.5 - Hyperlipidemia, unspecified - Subjective Interval history: March 22. She was hospitalized in acute-care at [facility] March 17- after presenting with dyspnea. Leukocytosis was present. Chest and abdomen CT were done to further evaluate reported weight loss and dyspnea. No worrisome pathology was seen. There was a 3 x 2 x 2.8 cm left ovarian cystic lesion. Recommendation for further evaluation ultrasound was made. Her PCP Dr. Rodriguez can order this. Fibrotic changes throughout the lungs similar appearance to previous studies were noted. She was treated empirically with antibiotics and leukocytosis with left shift resolved by March 21. PT and OT evaluations and ongoing interventions were done. She received approval for discharge to swing bed March 21. She has no new complaints today. - Constitutional Vitals: Temp Pulse Resp BP Pulse Ox 98.4 F 81 16 88/52 97 03/22/18 06:47 03/22/18 06:47 03/21/18 18:40 03/22/18 06:47 03/22/18 06:47 Exam: She is resting comfortably in bed and appears minimally dyspneic. Oxygen saturation was 91% wearing oxygen by nasal cannula. I reviewed her medications and lab results. Consult Discharge Plan - Plan Referrals: Kareem Rodriguez DO [Primary Care Provider] - 1 week
[2018-03-22] MEDS: Budesonide/Formoterol 160/4.5 1 PUFF INH IH SCH ×2 (12:01→22:29)
[2018-03-23] MEDS: Budesonide/Formoterol 160/4.5 1 PUFF INH IH SCH ×2 (09:29→22:48)
[2018-03-23] MEDS ORDERED: Ondansetron ODT 4 MG TAB.RAPDIS SL PRN (18:51)
[2018-03-23] MEDS ORDERED: *HR* Promethazine 25 MG/ML VIAL IM PRN (18:59)
[2018-03-24] MEDS: Budesonide/Formoterol 160/4.5 1 PUFF INH IH SCH ×2 (09:31→21:15)
--- NOTE | 2018-03-24 11:33 | Internal Med Progress Note ---
Date of Encounter: 03/24/18 Time of Encounter: 11:25 - Assessment and plan (1) Interstitial lung disease Current Visit: No Status: Chronic Assessment and plan: March 22. Continue supplemental oxygen. (2) Hypertension Current Visit: No Status: Chronic Assessment and plan: March 22. Blood pressure borderline low. She is off all antihypertensive medication at this time. March 24. Blood pressure acceptable. Remain off antihypertensive medications. Qualifiers: Hypertension type: essential hypertension Qualified Code(s): I10 - Essential (primary) hypertension (3) Weight loss Current Visit: No Status: Chronic Assessment and plan: March 22. Etiology not identified. Continue to monitor. (4) Weakness Current Visit: No Status: Chronic Assessment and plan: March 22. Continue PT and OT intervention. (5) Hyperlipidemia Current Visit: Yes Status: Chronic Assessment and plan: March 22. Lipid profile 01/08/2018 showed cholesterol 110, triglycerides 82, LDL 56, HDL 38, and total/HDL ratio of 2.9. Lipitor will be discontinued. Qualifiers: Hyperlipidemia type: unspecified Qualified Code(s): E78.5 - Hyperlipidemia, unspecified - Subjective Interval history: March 22. She was hospitalized in acute-care at [facility] March 17 after presenting with dyspnea. Leukocytosis was present. Chest and abdomen CT were done to further evaluate reported weight loss and dyspnea. No worrisome pathology was seen. There was a 3 x 2 x 2.8 cm left ovarian cystic lesion. Recommendation for further evaluation ultrasound was made. Her PCP Dr. Rodriguez can order this. Fibrotic changes throughout the lungs similar appearance to previous studies were noted. She was treated empirically with antibiotics and leukocytosis with left shift resolved by March 21. PT and OT evaluations and ongoing interventions were done. She received approval for discharge to swing bed March 21. She has no new complaints today. March 24. She has no new complaints and she feels she is making progress with increased ambulation ability. - Constitutional Vitals: Temp Pulse Resp BP Pulse Ox 97.6 F 84 16 127/68 93 03/24/18 07:48 03/24/18 07:48 03/24/18 09:32 03/24/18 07:48 03/24/18 10:19 Exam: She is resting comfortably in bed and appears in no acute distress. Oxygen saturation is 93-94%. Heart rate is approximately 95-100. Extremities show no edema. I reviewed her medications and lab results. Consult Discharge Plan - Plan Referrals: Kareem Rodriguez DO [Primary Care Provider] - 1 week
[2018-03-25] MEDS: Budesonide/Formoterol 160/4.5 1 PUFF INH IH SCH ×2 (10:49→21:43)
[2018-03-26] MEDS: Budesonide/Formoterol 160/4.5 1 PUFF INH IH SCH ×2 (10:23→21:23)
[2018-03-26] MEDS ORDERED: Mag Hydrox/Al Hydrox/Simeth 30 ML UDC PO PRN (14:24)
--- NOTE | 2018-03-26 19:30 | Internal Med Progress Note ---
Date of Encounter: 03/26/18 Time of Encounter: 19:22 - Assessment and plan (1) Interstitial lung disease Current Visit: No Status: Chronic Assessment and plan: March 22. Continue supplemental oxygen. (2) Hypertension Current Visit: No Status: Chronic Assessment and plan: March 22. Blood pressure borderline low. She is off all antihypertensive medication at this time. March 24. Blood pressure acceptable. Remain off antihypertensive medications. Qualifiers: Hypertension type: essential hypertension Qualified Code(s): I10 - Essential (primary) hypertension (3) Weight loss Current Visit: No Status: Chronic Assessment and plan: March 22. Etiology not identified. Continue to monitor. (4) Weakness Current Visit: No Status: Chronic Assessment and plan: March 22. Continue PT and OT intervention. March 26. Continue therapy. Anticipate discharge home 03/28/2018 if stable. (5) Hyperlipidemia Current Visit: Yes Status: Chronic Assessment and plan: March 22. Lipid profile 01/08/2018 showed cholesterol 110, triglycerides 82, LDL 56, HDL 38, and total/HDL ratio of 2.9. Lipitor will be discontinued. Qualifiers: Hyperlipidemia type: unspecified Qualified Code(s): E78.5 - Hyperlipidemia, unspecified - Subjective Interval history: March 22. She was hospitalized in acute-care at [facility] March 17 after presenting with dyspnea. Leukocytosis was present. Chest and abdomen CT were done to further evaluate reported weight loss and dyspnea. No worrisome p athology was seen. There was a 3 x 2 x 2.8 cm left ovarian cystic lesion. Recommendation for further evaluation ultrasound was made. Her PCP Dr. Rodriguez can order this. Fibrotic changes throughout the lungs similar appearance to previous studies were noted. She was treated empirically with antibiotics and leukocytosis with left shift resolved by March 21. PT and OT evaluations and ongoing interventions were done. She received approval for discharge to swing bed March 21. She has no new complaints today. March 24. She has no new complaints and she feels she is making progress with increased ambulation ability. March 26. She has no new complaints and feels stronger. She is pleased with her progress in therapy. - Constitutional Vitals: Temp Pulse Resp BP Pulse Ox 99.1 F 96 18 104/60 96 03/26/18 18:54 03/26/18 18:54 03/26/18 18:54 03/26/18 18:54 03/26/18 18:54 Exam: She is resting comfortably in bed and appears in no acute distress. She is wearing oxygen by nasal cannula. Her affect is bright and cheerful. I reviewed her medications and lab results. Consult Discharge Plan - Plan Referrals: Kareem Rodriguez DO [Primary Care Provider] - 1 week
[2018-03-27 07:04] VITALS: BP 97/63
[2018-03-27] MEDS: Budesonide/Formoterol 160/4.5 1 PUFF INH IH SCH (09:55)
--- NOTE | 2018-03-27 16:55 | Discharge Summary ---
Date of Encounter: 03/27/18 Time of Encounter: 16:47 - Discharge Diagnosis (1) Interstitial lung disease Priority: Primary Status: Chronic (2) Hypertension Priority: Secondary Status: Chronic Qualifiers: Hypertension type: essential hypertension Qualified Code(s): I10 - Essential (primary) hypertension (3) Weight loss Priority: Secondary Status: Chronic (4) Weakness Priority: Secondary Status: Chronic (5) Hyperlipidemia Priority: Secondary Status: Chronic Qualifiers: Hyperlipidemia type: unspecified Qualified Code(s): E78.5 - Hyperlipidemia, unspecified (6) Left ovarian cyst Priority: Secondary Status: Chronic Hospital course: Ms. Garcia is a 77 year old female was hospitalized in acute-care at [facility] March 17 after presenting with dyspnea. Leukocytosis was present. Chest and abdomen CT were done to further evaluate reported weight loss and dyspnea. No worrisome pathology was seen. There was a 3 x 2 x 2.8 cm left ovarian cystic lesion. Recommendation for further evaluation ultrasound was made. Her PCP Dr. Rodriguez can order this. Fibrotic changes throughout the lungs similar appearance to previous studies were noted. She was treated empirically with antibiotics and leukocytosis with left shift resolved by March 21. PT and OT evaluations and ongoing interventions were done. She received approval for discharge to swing bed March 21. She continued PT and OT in swing bed and made satisfactory progress with increased stamina and strength. No new problems arose and on March 27 she stated she wished to be discharged home. Home health services will be ordered. She will continue use of oxygen 11/09. She will follow with her PCP Dr. Rodriguez within 1 week. - Time Spent with Patient Total time spent providing and/or coordinating discharge services: - Discharge Medications Prescriptions: Budesonide/Formoterol 160/4.5 [Symbicort 160/4.5] 2 puff IH BIDR #1 inh Home Medications: Albuterol Sulfate [Albuterol Inhaler] 2 puff IH Q4HR PRN 09/19/16 [History] Ipratropium/Albuterol Neb [Duoneb] 3 ml IH Q6HR PRN 09/19/16 [History] Budesonide/Formoterol 160/4.5 [Symbicort 160/4.5] 2 puff IH BIDR #1 inh 03/27/18 [Rx] Allergies/Adverse Reactions: Allergy/AdvReac Type Severity Reaction Status Date / Time No Known Allergies Allergy Verified 03/17/18 00:48 Date of admission: 03/21/18 18:06 Primary care physician: Kareem Rodriguez DO Consults: 03/21/18 17:54 Consult to Physical Therapy [CONS] Routine Comment: Evaluate, develop and implement POC Reason for Consult: weakness Does patient have active BEDREST order?: No Is patient medically & hemodynamically stable?: Yes Patient assessed for mobility or mobilized this visit?: Yes OT [Consult to Occupational Therapy] [CONS] Routine Comment: Evaluate, develop and implement POC Reason for Consult: weakness Does patient have active BEDREST order?: No Is patient medically & hemodynamically stable?: Yes Patient assessed for mobility or mobilized this visit?: Yes - Constitutional Vitals: Temp Pulse Resp BP Pulse Ox 97.5 F L 91 14 97/63 97 03/27/18 07:03 03/27/18 07:03 03/27/18 09:55 03/27/18 07:03 03/27/18 09:55 - Patient Status Disposition: Home Health Service - Discharge Instructions Follow Up With: Kareem Rodriguez DO [Primary Care Provider] - 04/01/18 11:30 am - Diet and Activity Activity: as per physical therapy, wear oxygen at all times Diet: advance to your usual diet
--- NOTE | 2018-03-27 17:02 | Physician Discharge Referral ---
Home Health/Hosp Referral Info Transfer to: Home Health Attending Provider: Ezequiel Provider in Charge Post Discharge: PCP (Kareem Rodriguez D.O.) - Diagnosis (1) Interstitial lung disease Priority: Primary Status: Chronic (2) Hypertension Priority: Secondary Status: Chronic (3) Weight loss Priority: Secondary Status: Chronic (4) Weakness Priority: Secondary Status: Chronic (5) Hyperlipidemia Priority: Secondary Status: Chronic (6) Left ovarian cyst Priority: Secondary Status: Chronic - Respiratory Orders Oxygen / L per min (2 L/m by nasal cannula 24/7 with portable gas and concentrator.) Smoking Cessation: Smoking cessation has been advised. For more information, call the [place] Tobacco Quit Line at 8-822-EVNS-NOW. - Diet/Nutrition Diet/Nutrition Orders: Regular - Activity Activity Orders: Ambulate - Services Needed Following services are medically necessary services: Nursing, Home Health Aide, Physical Therapy, Occupational Therapy - Transfer Medications Prescriptions: Budesonide/Formoterol 160/4.5 [Symbicort 160/4.5] 2 puff IH BIDR #1 inh Home Medications: Albuterol Sulfate [Albuterol Inhaler] 2 puff IH Q4HR PRN 09/19/16 [History] Ipratropium/Albuterol Neb [Duoneb] 3 ml IH Q6HR PRN 09/19/16 [History] Budesonide/Formoterol 160/4.5 [Symbicort 160/4.5] 2 puff IH BIDR #1 inh 03/27/18 [Rx] Allergies/Adverse Reactions: Allergy/AdvReac Type Severity Reaction Status Date / Time No Known Allergies Allergy Verified 03/17/18 00:48 Certification: Further, I certify that my clinical findings support that this patient is homebound (i.e. absences from home require considerable and taxing effort and are for medical reasons or congregation services or infrequently or short duration when for other reasons) because: Homebound Reason: Leaving home requires considerable and taxing effort due to condition (Impaired ambulatory ability and stamina with interstitial lung disease.) Attestation: My signature below is to certify that this patient is under my care and that I, or nurse practitioner, or a physician's pediatric assistant working with me, has a [id number] encounter with this patient.
== END 2018-03-27 17:10 | disposition home health service (06) | DRG 198 ==
LOC: INPPIK 18:06
PROVIDERS: ADMIT Internal Medicine; ATTEND Internal Medicine